=== PATIENT | male | born 1960 | race Caucasian/White ===

== ENCOUNTER 2018-11-25 12:33 | Day surgery (SDC) | payer BC, OTHER ==
[~2018-11-25] VITALS: Ht 182.9 cm; Wt 90.1 kg
[~2018-11-25 12:33] MED LIST: ATORVASTATIN; CLOPIDOGREL; LOSARTAN; METOPROLOL; TERAZOSIN
[2018-11-25 13:28] VITALS: Ht 182.9 cm; Wt 90.1 kg
[2018-11-25 14:41] VITALS: BP 155/92; PULSE 57; RESP 20
== END 2018-11-25 17:25 | disposition home or self-care (01) ==
LOC: GIL 12:33
PROVIDERS: ATTEND Internal Medicine Gastroenterology
DX: K29.30 Chronic superficial gastritis without bleeding (principal); K44.9 Diaphragmatic hernia without obstruction or gangrene; K20.8 Other esophagitis; I10 Essential (primary) hypertension; E78.00 Pure hypercholesterolemia, unspecified
CPT/HCPCS: 43239; J3010; Z7610; 88305; 88312